=== PATIENT | male | born 2005 | race Caucasian/White ===

== ENCOUNTER 2024-02-12 15:20 | Emergency (ER) | payer BC ==
[2024-02-12] MEDS: Lidocaine 1% 5 ML VIAL INJECT ONE (17:16)
[2024-02-12] MEDS: Ibuprofen 600 MG Tab PO ONE ×2 (17:17→18:19)
[2024-02-12] MEDS: traMADol 50 MG Tab PO ONE (17:17)
[2024-02-12] MEDS: Diphtheria,Pertussis(Acell),Tetanus Vaccine 0.5 ML Syringe IM ONE (17:18)
[2024-02-12] MEDS: Bacitracin Oint 1 GM U/D Packet TOP ONE (18:16)
[2024-02-12] MEDS: Cephalexin 500 MG Cap PO ONE (18:16)
== END 2024-02-12 18:24 | disposition home or self-care (01) ==
LOC: MW.ED 15:20
DX: S62.660B Nondisplaced fracture of distal phalanx of right index finger, initial encounter for open fracture (principal); Z23 Encounter for immunization; Z75.8 Other problems related to medical facilities and other health care; Z79.899 Other long term (current) drug therapy; W31.1XXA Contact with metalworking machines, initial encounter; Y93.89 Activity, other specified; Y99.0 Civilian activity done for income or pay
CPT/HCPCS: 12002; 73140; 90471; 90715; 99283; A9270; J3490

== ENCOUNTER 2025-09-06 13:03 | Emergency (ER) | payer BC ==
[2025-09-06] MEDS: Prochlorperazine 10 MG/2 ML SDV IVPUSH ONE (13:34)
[2025-09-06] MEDS: diphenhydrAMINE 50 MG/ML SDV IVPUSH ONE (13:34)
[2025-09-06] MEDS: Dexamethasone Sod Phos Preservative Free 10 MG/ML Vial IVPUSH ONE (13:34)
[2025-09-06] MEDS: Ketorolac 30 MG/ML SDV IVPUSH ONE (13:34)
== END 2025-09-06 14:57 | disposition home or self-care (01) ==
LOC: MW.ED 13:03
DX: G43.909 Migraine, unspecified, not intractable, without status migrainosus (principal); Z79.899 Other long term (current) drug therapy; Z87.891 Personal history of nicotine dependence
CPT/HCPCS: 70450; 96361; 96374; 96375; 99284; J0780; J1100; J1200; J1885; J7030